=== PATIENT | male | born 2000 | race Caucasian/White ===

== ENCOUNTER 2021-01-15 07:39 | Emergency (ER) | payer OTHER ==
[~2021-01-15] VITALS: Ht 170.2 cm; Wt 63.0 kg
[2021-01-15] MEDS ORDERED: QC A650T3 PO (07:46)
[2021-01-15] MEDS ORDERED: CALC500C16 PO (07:46)
[2021-01-15] MEDS ORDERED: AMOX500T PO (07:46)
[2021-01-15] MEDS ORDERED: IBUPROFEN 600MG TAB PO ONE (08:00)
[2021-01-15 08:25] LABS: BASO # 0.1 10^3/uL (0.0-0.2); BASO % 0.7 % (0.0-1.0); EOS # 0.5 10^3/uL (0.0-0.5); EOS % 5.8 % (0.0-3.0); HEMATOCRIT 48.7 % (42.0-52.0); LYMPH # 3.1 10^3/uL (1.5-5.0); LYMPH % 35.3 % (24.0-44.0); MEAN CORPUSCULAR HEMOGLOBIN 29.4 pg (27.0-33.0); MEAN CORPUSCULAR HGB CONC 32.9 g/dl (32.0-36.5); MEAN CORPUSCULAR VOLUME 89.4 fl (80.0-96.0); MONO # 0.9 10^3/uL (0.0-0.8); MONO % 10.6 % (2.0-8.0); NEUTROPHILS # 4.2 10^3/uL (1.5-8.5); NEUTROPHILS % 47.5 % (36.0-66.0); PLATELET COUNT, AUTOMATED 339 10^3/uL (150-450); RED BLOOD COUNT 5.45 10^6/uL (4.30-6.10); WHITE BLOOD COUNT 8.9 10^3/uL (4.0-10.0)
--- NOTE | 2021-01-15 08:49 | REP ---
INDICATION: trauma COMPARISON: None. TECHNIQUE: Frontal view of the pelvis with neutral and frog lateral views of the right hip. FINDINGS: Osseous structures and joint spaces are intact and normal. Hip joints appear symmetric on frontal pelvic radiograph. No acute fracture dislocation. No evidence for healed injury. No significant degenerative or congenital abnormalities are appreciated. Surrounding soft tissues are unremarkable. IMPRESSION: Normal pelvis and right hip series. <Electronically signed by Chidi Ahn > 01/15/21 [id number]
--- NOTE | 2021-01-15 08:49 | REP ---
INDICATION: RLE pain r/o DVT COMPARISON: None. TECHNIQUE: Araya scale and color Doppler evaluation using linear high frequency transducer. FINDINGS: Ultrasound examination of the right lower extremity deep venous structures from the common femoral vein through the calf/ankle to include the peroneal, and tibial veins demonstrates normal compressibility flow and wave patterns in response to respiration and augmentation. There is no evidence for deep venous thrombosis. Contralateral CFV is patent and normal. IMPRESSION: No evidence for deep venous thrombosis. <Electronically signed by Chidi Ahn > 01/15/21 [id number]
[2021-01-15 08:50] LABS: BLOOD UREA NITROGEN 16 MG/DL (7-18); CALCIUM LEVEL 9.8 MG/DL (8.5-10.1); CARBON DIOXIDE LEVEL 28 MEQ/L (21-32); CHLORIDE LEVEL 106 MEQ/L (98-107); CREATININE FOR GFR 1.16 MG/DL (0.70-1.30); GLUCOSE, FASTING 86 MG/DL (70-100); POTASSIUM SERUM 4.2 MEQ/L (3.5-5.1); SODIUM LEVEL 140 MEQ/L (136-145)
[2021-01-15 08:53] LABS: ERYTHROCYTE SEDIMENTATION RATE 2 mm/hr (0-15)
[2021-01-15 09:28] VITALS: BP 110/57
== END 2021-01-15 09:29 | disposition home or self-care (01) ==
LOC: M ED 07:39
DX: M25.551 Pain in right hip (principal)

== ENCOUNTER 2021-02-03 12:27 | Inpatient (IN) | payer OTHER ==
[~2021-02-03] VITALS: Ht 167.6 cm; Wt 63.6 kg
[~2021-02-03 12:27] MED LIST: AMOX500T PO; CALC500C16 PO; QC A650T3 PO
[2021-02-03 12:58] LABS: HEMATOCRIT 45.4 % (42.0-52.0); HEMOGLOBIN 15.3 g/dl (13.5-17.5); MEAN CORPUSCULAR HEMOGLOBIN 30.1 pg (27.0-33.0); MEAN CORPUSCULAR HGB CONC 33.7 g/dl (32.0-36.5); MEAN CORPUSCULAR VOLUME 89.2 fl (80.0-96.0); PLATELET COUNT, AUTOMATED 294 10^3/uL (150-450); RED BLOOD COUNT 5.09 10^6/uL (4.30-6.10); WHITE BLOOD COUNT 8.3 10^3/uL (4.0-10.0)
[2021-02-03 13:45] LABS: ACETAMINOPHEN LEVEL < 2.0 UG/ML (10.0-30.0); ALBUMIN 4.2 GM/DL (3.2-5.2); ALT/SGPT 28 U/L (12-78); BILIRUBIN,DIRECT 0.3 MG/DL (0.0-0.2); BILIRUBIN,TOTAL 1.4 MG/DL (0.2-1.0); BLOOD UREA NITROGEN 15 MG/DL (7-18); CALCIUM LEVEL 8.9 MG/DL (8.5-10.1); CARBON DIOXIDE LEVEL 24 MEQ/L (21-32); CHLORIDE LEVEL 105 MEQ/L (98-107); CREATININE FOR GFR 0.95 MG/DL (0.70-1.30); ETHYL ALCOHOL (ETHANOL) < 0.003 % (0.000-0.010); GLUCOSE, FASTING 93 MG/DL (70-100); POTASSIUM SERUM 4.3 MEQ/L (3.5-5.1); SALICYLATE LEVEL < 1.7 MG/DL (5.0-30.0); SODIUM LEVEL 137 MEQ/L (136-145); TOTAL PROTEIN 7.6 GM/DL (6.4-8.2)
[2021-02-03 15:56] LABS: AMPHETAMINES LEVEL URINE NEGATIVE (NEGATIVE); BARBITURATES URINE NEGATIVE (NEGATIVE); BENZODIAZEPINES URINE NEGATIVE (NEGATIVE); CANNABINOIDS URINE NEGATIVE (NEGATIVE); COCAINE METABOLITE URINE NEGATIVE (NEGATIVE); METHADONE URINE NEGATIVE (NEGATIVE); OPIATES URINE NEGATIVE (NEGATIVE); PHENCYCLIDINE URINE NEGATIVE (NEGATIVE)
[2021-02-03 17:53] LABS: RSV AMPLIFICATION NEGATIVE (NEGATIVE)
[2021-02-03] MEDS ORDERED: HOME MED LIST COMPLETE! XX SCH (18:50)
--- NOTE | 2021-02-03 19:58 | ECGEPIP ---
[facility] - ED Test Date: 2021-02-03 Pat Name: JAXON RANDALL Department: Room: - Gender: Male Scrap Sorter: KG : 2000 Requested By: Felipe Hennessy Order Number: [id number] Reading MD: Kenia Reynoso Measurements Intervals [place] Rate: 58 P: 56 [place]: 134 QRS: 67 QRSD: 88 T: 48 QT: 402 QTc: 394 Interpretive Statements Sinus bradycardia No prior Electronically Signed on 02-03-2021 19:58:31 EDT by Kenia Reynoso
[2021-02-03] MEDS ORDERED: MOM 30ML SUSPENSION UDC PO PRN (21:40)
[2021-02-03] MEDS ORDERED: OLANZapine ORAL DISINTEGRATING TAB 5MG PO PRN (21:40)
[2021-02-03] MEDS ORDERED: IBUPROFEN 400MG TAB PO PRN (21:40)
[2021-02-03] MEDS ORDERED: MAALOX 30 ML SUSP *UDC PO PRN (21:40)
[2021-02-03 22:12] VITALS: BP 111/65
[2021-02-03] MEDS: traZODone 50 MG TAB PO PRN (22:58)
[2021-02-03] MEDS: ACETAMINOPHEN TAB 650MG DOSE (2X325MG) PO PRN (22:58)
[2021-02-04 06:14] VITALS: BP 122/70
[2021-02-04] MEDS: ACETAMINOPHEN TAB 650MG DOSE (2X325MG) PO PRN ×3 (08:43→21:57)
--- NOTE | 2021-02-04 10:59 | MHHPEPDOC ---
General Date Of Admission: Feb 03, 2021 Legal Status: 9.39 Chief Complaint I was not trying to kill myself I just took those pills because I couldn't sleep. ". History of Present Illness HISTORY OF THE PRESENT ILLNESS: Patient is a 20 -year-old , male, who [has no previous psychiatric history brought to emergency room from [facility] after he told them that he took about six or seven different uwvn-xja-uivjhla pain medicine last night. Patient stated that he has been under a lot of stress from multiple problems in his life. He has relationship issues with his son's mother and also his girlfriend is having issues with her own son in addition to that he has been upset about his brother who has some legal issues. He was recently assigned to the unit at [facility] and he is having difficult time with new members who is giving him hard time and has been missing his work and under disciplinary action. Patient stated that he went to [facility] to have a someone to talk to and has an appointment but in the meantime he was having trouble sleeping and took several different hnpd-ggp-vkmyrko Tylenol and Motrin Wednesday night and then went to the mental health unit to report this and was recommended to come to emergency room. Patient strongly denies any intent to kill himself and stated that he just wanted to get some sleep and rest and ended up taking more than he plan to. Patient denies any ongoing depression denies any history of treatment for depression denies any history of psychosis or karen and does not believe that he needs any antidepressant treatment. He did experiment with the different routes and alcohol before joining the service but denies any current substance abuse issues. Patient is willing to continue outpatient counseling but denies any active lethality and wants to be discharged [facility]. Psychiatric Review of Systems Depression (2 or more weeks): insomnia/hypersomnia, other (Denies any serious depressive symptoms) Karen (4 or more days of): denies Psychosis: denies PTSD: denies Anxiety: situational anxiety, stressor related anxiety, other (Under stress from multiple life issues involving his girlfriend's son's mother and his) Past Psychiatric History Previous Psychiatric Diagnosis: [None]. Previous Psychiatric Admissions: [None]. Suicide Attempts: [No history of suicidal attempt]. Psychiatric Follow-up: Has an appointment with behavioral health unit . Psychiatric medications: [None]. Past Medical History Medical Problems Has stress fracture on his hip Head Injury: No Seizures: No Hospitalizations: No Surgeries: No Family Medical/Psychiatric HX Medical Problems Noncontributory Psychiatric Disorders: No (No family psychiatric history) Addiction: No Suicide Attemps/Completions: No Addiction History denies Social History childhood: [Born in [place] uneventful childhood as parents and the brother]. Abuse/Trauma: Denies any. Current Living Situation: [place] Education: High school. 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 Social Support: [Has a girlfriend]. Legal: [No legal history]. Marital: [Never but has a 3-month-old son with the old girlfriend and having some issues with a support money]. Mental Status Examination General Appearance: appears stated age Build: average Demeanor: average Eye Contact: average Activity: average Behavior: cooperative Speech: clear, normal volume Mood: anxious Mood Moderately anxious with the situational problems but denies any serious de pressed mood. He also reports no clinical signs or symptoms of major depression Affect: full, appropriate, congruent Thought Process: logical/linear Thought Content (Delusions): none reported, denies SI, HI, AVH Thought Content (Other): none reported Thought Content (Aggressive): none reported Perception (Hallucinations): none reported Perception (Other): none reported Cognition (Impairment of): none reported Cognition(Intelligence Est.): average Oriented: Awake, Alert, Oriented times three Insight: fair Judgment: Fair Psychosis: Denies Diagnoses Adjustment disorder with mixed emotion A-FIB/CHADSVASC A-FIB History Current/History of A-Fib/PAF?: No Current PO Anticoag Therapy: No Age/Risk Factor Scoring CHADSVASC: CHADSVASC Response (Comments) Value Age Risk Factor Age < 65 years old 0 Gender Risk Factor Male 0 Hx of CHF No 0 Hx of HTN No 0 Hx of Stroke/TIA/or VTE No 0 Hx of Diabetes No 0 Hx of Vascular Disease No 0 Total 0 Treatment Treatment ordered: NONE Assessment Patient does not appear to be acutely suicidal and denies any serious depressive symptoms. He can be discharged back to his unit with counseling service at [facility]. Initial Treatment Plan 1. Patient was admitted on a 39 status. 2. Complete history was obtained. 3. With patients permission, family will be contacted and database will be expanded. 4. Patients medication regimen will be reviewed and changed accordingly. 5. Patient will be provided with protected environment. 6. Patient will be treated with individual, group, and milieu therapies. 7. Patient will receive supportive psych-education. 8. Discharge planning will commence immediately. 9. Outpatient follow-up treatment will be strongly recommended. 10. The initial treatment plan will focus initially on: * Depression. * Risk for suicide. ESTIMATED LENGTH OF STAY: 2-3 DAYS. TIME SPENT COUNSELING AND COORDINATING INITIAL CARE: 40 minutes. Tobacco Cessation Screen If Patient is a Smoker Non-smoker N/A-No Antipsychotics Vital Signs Vital Signs Date Time Temp Pulse Resp B/P (MAP) Pulse Ox O2 Delivery O2 Flow Rate FiO2 02/04/21 06:14 97.8 52 16 122/70 (87) 98 Room Air Laboratory Data 24H Labs Laboratory Tests 2 02/03/21 12:37: Nucleated Red Blood Cells % (auto) 0.0, Anion Gap 8, Calcium Level 8.9, Total Bilirubin 1.4H, Direct Bilirubin 0.3H, Aspartate Amino Transf (AST/SGOT) 24, Alanine Aminotransferase (ALT/SGPT) 28, Alkaline Phosphatase 102, Total Protein 7.6, Albumin 4.2, Albumin/Globulin Ratio 1.2, Thyroid Stimulating Hormone (TSH) 3.070, Salicylates Level < 1.7L, Acetaminophen Level < 2.0L, Ethyl Alcohol Level < 0.003 02/03/21 15:04: Urine Opiates Screen NEGATIVE, Urine Methadone Screen NEGATIVE, Urine Barbiturates Screen NEGATIVE, Urine Phencyclidine Screen NEGATIVE, Urine Amphetamines Screen NEGATIVE, Urine Benzodiazepines Screen NEGATIVE, Urine Cocaine Metabolite Screen NEGATIVE, Urine Cannabinoids Screen NEGATIVE 02/03/21 16:29: Coronavirus (COVID-19)(PCR) NEGATIVE, Influenza Type A (RT-PCR) NEGATIVE, Influenza Type B (RT-PCR) NEGATIVE, Respiratory Syncytial Virus (PCR) NEGATIVE CBC/BMP Laboratory Tests 02/03/21 12:37 Medications Scheduled PRN Acetaminophen (Acetaminophen 8 Hour) 650 Mg Tablet.er, 650 MG PO Q8H PRN for PAIN LEVEL 1-6, (Reported) Allergies Coded Allergies: No Known Drug Allergies (Verified Allergy, Unknown, 01/15/21) ARIANA CAMPOS M.D. Feb 04, 2021 10:59
--- NOTE | 2021-02-04 12:19 | HPEPDOC ---
[facility] Medical History & Physical Date of Admission Feb 03, 2021 Date of Service: Feb 04, 2021 Other Provider Vita Dominguez MD, attending psychiatrist Attending Physician: JAIDA PARADA DO History and Physical CHIEF COMPLAINT: Overdose on pain medication HISTORY OF PRESENT ILLNESS: Patient is a 20-year-old male who presented to the emergency department after he states he took extra Tylenol and Advil. Patient states he was not trying to harm himself and is unsure why he took this m edication. Patient was admitted into the inpatient mental health unit for further monitoring for unspecified depressive disorder with possible overdose for suicidal ideation. Patient states he is otherwise feeling fine. Patient denies suicidal or homicidal ideations. Patient states that he has stress fractures in his hips which she has not seen orthopedic for as he keeps pushing these dates back. Patient is otherwise feeling well. PAST MEDICAL HISTORY: Denies any medical history PAST SURGICAL HISTORY: Denies any surgical history SOCIAL HISTORY: Patient currently lives in the [facility] as he is active duty [employer]. 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 Patient denies any smoking of cigarettes, illicit drug use. Patient says he has occasionally had alcohol FAMILY HISTORY: Denies any family history ALLERGIES: Please see below. REVIEW OF SYSTEMS: General: Patient denies fevers HEENT: Patient denies headaches Cardiovascular: Patient denies chest pain Respiratory: Patient denies shortness of breath, cough GI: Patient denies abdominal pain, nausea, vomiting, diarrhea : Patient denies increased frequency or pain with urination Extremities: Patient denies swelling or pain in extremities Neurological: Patient denies numbness or tingling in legs Skin: Patient denies any new rashes or lesions. Hematologic: Patient denies any easy bruising. Lymphatic: Patient denies any lumps lumps or bumps in neck, axilla, or groin HOME MEDICATIONS: Please see below. PHYSICAL EXAMINATION: VITAL SIGNS: Temperature 97.8, pulse 52, respiratory rate 16, blood pressure 122/70, pulse oximetry 98% on room air. General: Alert and oriented male patient who was sitting in the chair on I walked in. Patient was able to walk to the examination room under his own juliano r. Patient did not appear to be in any acute distress. HEENT: Normocephalic, atraumatic, moist mucous membranes. Neck: No lymphadenopathy or thyromegaly Cardiac: Regular rate and rhythm, no murmurs, normal S1, normal S2 Pulm: Clear to auscultation bilaterally. No wheezes, rhonchi, rales Abd: Nondistended, nontender to palpation, normal bowel sounds Ext: No edema bilateral lower extremities Neuro: Patient was able to move all 4 extremities equally. Skin: Skin of the head, neck, upper and lower extremities was examined and did not show any evidence of rash or lesion. LABORATORY DATA: See below. IMAGING: No imaging has been performed during this hospitalization MICROBIOLOGY: Please see below. ASSESSMENT: 20-year-old male who states he took extra Tylenol and ibuprofen and was not trying to hurt himself who is hospitalized in the inpatient mental health unit for depressive disorder. . PLAN: 1. Unspecified depressive disorder. Management per psychiatric team. Patient may be being discharged tomorrow. 2. Bilateral stress fractures in his hips. Encourage patient to follow-up with orthopedic surgery. Patient will continue to follow with outpatient physiotherapy. Patient can have Tylenol as needed. Disposition: Patient will continue the treatment plan per psychiatry. Please recent consult hospitalist if the need arises. Vital Signs Vital Signs Date Time Temp Pulse Resp B/P (MAP) Pulse Ox O2 Delivery O2 Flow Rate FiO2 02/04/21 06:14 97.8 52 16 122/70 (87) 98 Room Air Laboratory Data Labs 24H Laboratory Tests 2 02/03/21 12:37: Nucleated Red Blood Cells % (auto) 0.0, Anion Gap 8, Calcium Level 8.9, Total Bilirubin 1.4H, Direct Bilirubin 0.3H, Aspartate Amino Transf (AST/SGOT) 24, Alanine Aminotransferase (ALT/SGPT) 28, Alkaline Phosphatase 102, Total Protein 7.6, Albumin 4.2, Albumin/Globulin Ratio 1.2, Thyroid Stimulating Hormone (TSH) 3.070, Salicylates Level < 1.7L, Acetaminophen Level < 2.0L, Ethyl Alcohol Level < 0.003 02/03/21 15:04: Urine Opiates Screen NEGATIVE, Urine Methadone Screen NEGATIVE, Urine Barbiturates Screen NEGATIVE, Urine Phencyclidine Screen NEGATIVE, Urine Amphetamines Screen NEGATIVE, Urine Benzodiazepines Screen NEGATIVE, Urine Cocaine Metabolite Screen NEGATIVE, Urine Cannabinoids Screen NEGATIVE 02/03/21 16:29: Coronavirus (COVID-19)(PCR) NEGATIVE, Influenza Type A (RT-PCR) NEGATIVE, Influenza Type B (RT-PCR) NEGATIVE, Respiratory Syncytial Virus (PCR) NEGATIVE CBC/BMP Laboratory Tests 02/03/21 12:37 Home Medications Scheduled PRN Acetaminophen (Acetaminophen 8 Hour) 650 Mg Tablet.er, 650 MG PO Q8H PRN for PAIN LEVEL 1-6 Allergies Coded Allergies: No Known Drug Allergies (Verified Allergy, Unknown, 01/15/21) A-FIB/CHADSVASC A-FIB History Current/History of A-Fib/PAF?: No Age/Risk Factor Scoring CHADSVASC: CHADSVASC Response (Comments) Value Age Risk Factor Age < 65 years old 0 Gender Risk Factor Male 0 Hx of CHF No 0 Hx of HTN No 0 Hx of Stroke/TIA/or VTE No 0 Hx of Diabetes No 0 Hx of Vascular Disease No 0 Total 0 JAIDA PARADA DO Feb 04, 2021 12:19
[2021-02-04 16:34] VITALS: BP 119/56
[2021-02-04] MEDS: traZODone 50 MG TAB PO PRN (21:57)
[2021-02-05 05:59] VITALS: BP 125/56
[2021-02-05] MEDS: ACETAMINOPHEN TAB 650MG DOSE (2X325MG) PO PRN (08:27)
--- NOTE | 2021-02-05 09:50 | MHDSPDOC ---
[facility] Discharge Summary Discharge Summary DATE OF ADMISSION: Feb 03, 2021 at 21:55 DATE OF DISCHARGE: February 05, 2021 DISCHARGE DIAGNOSES: 1.. Adjustment disorder with mixed emotion 2.. REASON FOR ADMISSION: 20-year-old single male with no previous psychiatric history sent to emergency room from behavioral health unit after he told them that he took about 6 or 7 qmbf-bln-ungzofj pain medicine for sleep. Patient admits to having several life stressors but denies any suicidal intent and does not feel he needs any antidepressant treatment. He did seek counseling service and has an appointment with the behavioral health unit. CONSULTANTS INVOLVED: TREATMENT AND PROGRESS ON THE UNIT : Patient continues to deny any suicidal plan or intent and denies any clinical signs or symptoms of major depression. He is conflicted with his life problems but denies any serious ongoing depressive symptoms.. HOSPITAL COURSE: He was seen for supportive therapy and lethality evaluation. Patient was able to discuss his life stressors and admits that he is in some type of disciplinary proceeding and understands that he may get discharged from the service but denies any suicidal thoughts plan or intent. He is maintaining good control and does not want any antidepressant treatment but is willing to continue counseling service. DISCHARGE ASSESSMENT: Stable and not suicidal MENTAL STATUS EXAMINATION ON DISCHARGE: Patient is a 20-year old male, who is in no acute distress. Speech is coherent. Language skills are good. Thought processes including: Organized. Thought content: No psychotic symptoms and no suicidal thoughts. Abstract reasoning, and computation: Fair. Description of associations: Coherent. Description of abnormal or psychotic thoughts: No psychotic symptoms. Judgment: Fair. Insight: Fair. Orientation to oriented. Recent and remote memory: No impairment. Attention span and concentration: Fair. Language:. Fund of knowledge: Average. Mood: Moderately anxious. Affect: Appropriate. MEDICATIONS ON DISCHARGE: -For. No psychotropic medication -For. -For. PLAN/FOLLOWUP ARRANGEMENTS: To follow-up with the behavioral health unit. The amount of time spent in the coordination of care for this patient was approximately 30 minutes. ETOH/Disorder Med Rx ETOH/DRUG DISORDER RX: N/A Vital Signs/I&Os Vital Signs Date Time Temp Pulse Resp B/P (MAP) Pulse Ox O2 Delivery O2 Flow Rate FiO2 02/05/21 05:59 97.8 64 14 125/56 (79) 98 Room Air Medications Scheduled PRN Acetaminophen (Acetaminophen 8 Hour) 650 Mg Tablet.er, 650 MG PO Q8H PRN for PAIN LEVEL 1-6, (Reported) Allergies Coded Allergies: No Known Drug Allergies (Verified Allergy, Unknown, 01/15/21) ARIANA CAMPOS M.D. Feb 05, 2021 09:50
== END 2021-02-05 10:23 | disposition home or self-care (01) | DRG 882 ==
LOC: M ED 12:27 → M PSY 21:55
PROVIDERS: ADMIT Psychiatry & Neurology Psychiatry; ATTEND Psychiatry & Neurology Psychiatry
DX: F43.25 Adjustment disorder with mixed disturbance of emotions and conduct (principal); Z63.0 Problems in relationship with spouse or partner; M84.359D Stress fracture, hip, unspecified, subsequent encounter for fracture with routine healing; Z20.822 Contact with and (suspected) exposure to COVID-19

== ENCOUNTER 2021-06-23 12:51 | Emergency (ER) | payer OTHER ==
[~2021-06-23] VITALS: Ht 170.2 cm; Wt 63.6 kg
[2021-06-23] MEDS ORDERED: BUSP10TA PO (13:27)
[2021-06-23] MEDS ORDERED: TRAZ-252 PO (13:27)
[2021-06-23] MEDS ORDERED: KETOROLAC 30 MG/ML 1ML VIAL IV ONE (13:50)
[2021-06-23] MEDS ORDERED: GI COCKTAIL 50ML BTL(HYOSCYAMINE/MAALOX/LIDOCAINE VISCOUS)(1:3:1) PO ONE (13:50)
[2021-06-23] MEDS ORDERED: LORazepam 2 MG TAB PO ONE (13:50)
[2021-06-23 14:14] LABS: BASO # 0.1 10^3/uL (0.0-0.2); BASO % 0.4 % (0.0-1.0); EOS # 0.1 10^3/uL (0.0-0.5); EOS % 1.1 % (0.0-3.0); HEMATOCRIT 45.1 % (42.0-52.0); HEMOGLOBIN 14.9 g/dl (13.5-17.5); LYMPH # 1.9 10^3/uL (1.5-5.0); LYMPH % 15.7 % (24.0-44.0); MEAN CORPUSCULAR HEMOGLOBIN 30.5 pg (27.0-33.0); MEAN CORPUSCULAR VOLUME 92.4 fl (80.0-96.0); MONO # 1.5 10^3/uL (0.0-0.8); MONO % 12.7 % (2.0-8.0); NEUTROPHILS # 8.4 10^3/uL (1.5-8.5); NEUTROPHILS % 69.8 % (36.0-66.0); PLATELET COUNT, AUTOMATED 287 10^3/uL (150-450); RED BLOOD COUNT 4.88 10^6/uL (4.30-6.10); WHITE BLOOD COUNT 12.1 10^3/uL (4.0-10.0)
--- NOTE | 2021-06-23 14:48 | REP ---
INDICATION: CHEST PAIN COMPARISON: None. TECHNIQUE: Portable AP view of the chest FINDINGS: The mediastinum and cardiac silhouette are within normal limits for portable technique. The lung villarreal are clear without acute consolidation, effusion, or pneumothorax. Skeletal structures are intact. IMPRESSION: No acute cardiopulmonary process appreciated. <Electronically signed by Chidi Ahn > 06/23/21 0101
[2021-06-23 14:56] LABS: AMPHETAMINES LEVEL URINE NEGATIVE (NEGATIVE); BARBITURATES URINE NEGATIVE (NEGATIVE); BENZODIAZEPINES URINE NEGATIVE (NEGATIVE); CANNABINOIDS URINE POSITIVE (NEGATIVE); COCAINE METABOLITE URINE NEGATIVE (NEGATIVE); METHADONE URINE NEGATIVE (NEGATIVE); OPIATES URINE NEGATIVE (NEGATIVE); PHENCYCLIDINE URINE NEGATIVE (NEGATIVE)
[2021-06-23 14:57] LABS: RSV AMPLIFICATION NEGATIVE (NEGATIVE)
[2021-06-23 15:02] LABS: ACETAMINOPHEN LEVEL < 2.0 UG/ML (10.0-30.0); ALBUMIN 4.5 GM/DL (3.2-5.2); ALT/SGPT 19 U/L (12-78); BILIRUBIN,DIRECT 0.3 MG/DL (0.0-0.2); BILIRUBIN,TOTAL 1.3 MG/DL (0.2-1.0); BLOOD UREA NITROGEN 12 MG/DL (7-18); CALCIUM LEVEL 9.5 MG/DL (8.5-10.1); CARBON DIOXIDE LEVEL 23 MEQ/L (21-32); CHLORIDE LEVEL 107 MEQ/L (98-107); CREATININE FOR GFR 1.14 MG/DL (0.70-1.30); ETHYL ALCOHOL (ETHANOL) 0.004 % (0.000-0.010); GLUCOSE, FASTING 96 MG/DL (70-100); POTASSIUM SERUM 3.7 MEQ/L (3.5-5.1); SALICYLATE LEVEL < 1.7 MG/DL (5.0-30.0); SODIUM LEVEL 140 MEQ/L (136-145); TOTAL PROTEIN 7.7 GM/DL (6.4-8.2)
[2021-06-23] MEDS ORDERED: SUCR1TA PO (16:34)
[2021-06-23] MEDS ORDERED: OMEP40CA4 PO (16:34)
[2021-06-23 17:17] VITALS: BP 129/58
--- NOTE | 2021-06-23 19:15 | ECGEPIP ---
[facility] - ED Test Date: 2021-06-23 Pat Name: JAXON RANDALL Department: Room: - Gender: Male Manufacturing Automation Engineer: panchodanielradha : 2000 Requested By: SANDIE Ba Order Number: [id number] Reading MD: Kenia Reynoso Measurements Intervals [place] Rate: 93 P: 57 [place]: 134 QRS: 52 QRSD: 80 T: 54 QT: 328 QTc: 407 Interpretive Statements Normal sinus rhythm increased rate 02/03/21 Electronically Signed on 06-23-2021 19:15:27 EST by Kenia Reynoso
== END 2021-06-23 17:27 | disposition home or self-care (01) ==
LOC: EDBD 12:51 → M ED 12:51
DX: R07.89 Other chest pain (principal); F41.0 Panic disorder [episodic paroxysmal anxiety]
CPT/HCPCS: 71045; 80048; 80076; 80143; 80307; 82077; 84443; 84484; 85025; 85379; 87631; 93005; 93041; 94760; 96374; 99284; J1885

== ENCOUNTER 2021-09-17 13:05 | Emergency (ER) | payer OTHER ==
[~2021-09-17] VITALS: Ht 170.2 cm; Wt 65.9 kg
[~2021-09-17 13:05] MED LIST changes: +BUSP10TA PO; +OMEP40CA4 PO; +SUCR1TA PO; +TRAZ-252 PO
[2021-09-17] MEDS ORDERED: NS 1,000 ML IV ONE (14:25)
[2021-09-17 14:39] LABS: HEMATOCRIT 43.1 % (42.0-52.0); HEMOGLOBIN 14.9 g/dl (13.5-17.5); MEAN CORPUSCULAR HEMOGLOBIN 30.6 pg (27.0-33.0); MEAN CORPUSCULAR HGB CONC 34.6 g/dl (32.0-36.5); MEAN CORPUSCULAR VOLUME 88.5 fl (80.0-96.0); PLATELET COUNT, AUTOMATED 287 10^3/uL (150-450); RED BLOOD COUNT 4.87 10^6/uL (4.30-6.10); WHITE BLOOD COUNT 12.4 10^3/uL (4.0-10.0)
[2021-09-17 15:45] LABS: ACETAMINOPHEN LEVEL < 2.0 UG/ML (10.0-30.0); ALT/SGPT 26 U/L (12-78); BILIRUBIN,DIRECT 0.2 MG/DL (0.0-0.2); BILIRUBIN,TOTAL 0.8 MG/DL (0.2-1.0); BLOOD UREA NITROGEN 15 MG/DL (7-18); CALCIUM LEVEL 8.9 MG/DL (8.5-10.1); CARBON DIOXIDE LEVEL 26 MEQ/L (21-32); CHLORIDE LEVEL 110 MEQ/L (98-107); CREATININE FOR GFR 1.07 MG/DL (0.70-1.30); ETHYL ALCOHOL (ETHANOL) < 0.003 % (0.000-0.010); GLUCOSE, FASTING 89 MG/DL (70-100); POTASSIUM SERUM 3.7 MEQ/L (3.5-5.1); SALICYLATE LEVEL < 1.7 MG/DL (5.0-30.0); SODIUM LEVEL 141 MEQ/L (136-145); TOTAL PROTEIN 7.1 GM/DL (6.4-8.2)
[2021-09-17] MEDS ORDERED: LORazepam 2 MG/ML VIAL As Ordered ONE (15:49)
[2021-09-17] MEDS ORDERED: LORazepam 2 MG/ML VIAL IV STA (15:52)
[2021-09-17] MEDS ORDERED: busPIRone 10 MG TAB PO ONE (16:30)
[2021-09-17 16:32] VITALS: BP 112/79
== END 2021-09-17 20:07 | disposition home or self-care (01) ==
LOC: EDBD 13:05 → M ED 13:05
DX: R55 Syncope and collapse (principal); F41.0 Panic disorder [episodic paroxysmal anxiety]; F43.20 Adjustment disorder, unspecified; F19.10 Other psychoactive substance abuse, uncomplicated; Z79.899 Other long term (current) drug therapy
CPT/HCPCS: 71046; 80048; 80076; 80143; 82077; 84443; 84484; 85027; 85379; 93005; 93041; 94760; 96374; 99285; J2060

== ENCOUNTER 2021-09-22 12:59 | Emergency (ER) | payer OTHER ==
[~2021-09-22] VITALS: Ht 170.2 cm; Wt 65.9 kg
[2021-09-22] MEDS ORDERED: SERT50TA29 (13:12)
[2021-09-22] MEDS ORDERED: BUSP15TA47 (13:12)
[2021-09-22] MEDS ORDERED: NALT50TA4 (13:12)
[2021-09-22] MEDS ORDERED: hydrOXYzine 50 MG TAB PO ONE (13:50)
[2021-09-22 14:24] LABS: HEMATOCRIT 41.2 % (42.0-52.0); HEMOGLOBIN 14.2 g/dl (13.5-17.5); MEAN CORPUSCULAR HEMOGLOBIN 30.9 pg (27.0-33.0); MEAN CORPUSCULAR HGB CONC 34.5 g/dl (32.0-36.5); MEAN CORPUSCULAR VOLUME 89.6 fl (80.0-96.0); PLATELET COUNT, AUTOMATED 272 10^3/uL (150-450); WHITE BLOOD COUNT 12.2 10^3/uL (4.0-10.0)
[2021-09-22 15:04] LABS: RSV AMPLIFICATION NEGATIVE (NEGATIVE)
[2021-09-22 15:07] LABS: ACETAMINOPHEN LEVEL < 2.0 UG/ML (10.0-30.0); ALBUMIN 4.1 GM/DL (3.2-5.2); ALT/SGPT 20 U/L (12-78); BILIRUBIN,DIRECT 0.2 MG/DL (0.0-0.2); BILIRUBIN,TOTAL 0.8 MG/DL (0.2-1.0); BLOOD UREA NITROGEN 19 MG/DL (7-18); CALCIUM LEVEL 9.1 MG/DL (8.5-10.1); CARBON DIOXIDE LEVEL 26 MEQ/L (21-32); CHLORIDE LEVEL 108 MEQ/L (98-107); ETHYL ALCOHOL (ETHANOL) 0.003 % (0.000-0.010); GLUCOSE, FASTING 96 MG/DL (70-100); POTASSIUM SERUM 3.4 MEQ/L (3.5-5.1); SALICYLATE LEVEL < 1.7 MG/DL (5.0-30.0); SODIUM LEVEL 138 MEQ/L (136-145); TOTAL PROTEIN 7.3 GM/DL (6.4-8.2)
[2021-09-22 17:03] VITALS: BP 135/64
[2021-09-22 17:03] LABS: AMPHETAMINES LEVEL URINE NEGATIVE (NEGATIVE); BARBITURATES URINE NEGATIVE (NEGATIVE); BENZODIAZEPINES URINE NEGATIVE (NEGATIVE); CANNABINOIDS URINE POSITIVE (NEGATIVE); COCAINE METABOLITE URINE NEGATIVE (NEGATIVE); METHADONE URINE NEGATIVE (NEGATIVE); OPIATES URINE NEGATIVE (NEGATIVE); PHENCYCLIDINE URINE NEGATIVE (NEGATIVE)
== END 2021-09-22 17:08 | disposition home or self-care (01) ==
LOC: M ED 12:59
DX: F43.0 Acute stress reaction (principal); F41.8 Other specified anxiety disorders; F17.290 Nicotine dependence, other tobacco product, uncomplicated; Z79.899 Other long term (current) drug therapy

== ENCOUNTER 2021-10-17 05:10 | Emergency (ER) | payer OTHER ==
[~2021-10-17] VITALS: Ht 167.6 cm; Wt 61.4 kg
[~2021-10-17 05:10] MED LIST changes: +BUSP15TA47; +NALT50TA4; +SERT50TA29
[2021-10-17] MEDS ORDERED: NAPR-885 PO (05:21)
[2021-10-17] MEDS ORDERED: METH-1164 PO (05:21)
[2021-10-17 06:30] LABS: HEMATOCRIT 43.4 % (42.0-52.0); HEMOGLOBIN 14.4 g/dl (13.5-17.5); MEAN CORPUSCULAR HEMOGLOBIN 30.8 pg (27.0-33.0); MEAN CORPUSCULAR HGB CONC 33.2 g/dl (32.0-36.5); MEAN CORPUSCULAR VOLUME 92.9 fl (80.0-96.0); PLATELET COUNT, AUTOMATED 352 10^3/uL (150-450); RED BLOOD COUNT 4.67 10^6/uL (4.30-6.10); WHITE BLOOD COUNT 10.5 10^3/uL (4.0-10.0)
[2021-10-17 07:11] LABS: ACETAMINOPHEN LEVEL < 2.0 UG/ML (10.0-30.0); ALBUMIN 4.3 GM/DL (3.2-5.2); ALT/SGPT 24 U/L (12-78); BILIRUBIN,DIRECT 0.2 MG/DL (0.0-0.2); BLOOD UREA NITROGEN 12 MG/DL (7-18); CALCIUM LEVEL 9.4 MG/DL (8.5-10.1); CARBON DIOXIDE LEVEL 25 MEQ/L (21-32); CHLORIDE LEVEL 106 MEQ/L (98-107); ETHYL ALCOHOL (ETHANOL) 0.003 % (0.000-0.010); GLUCOSE, FASTING 94 MG/DL (70-100); SALICYLATE LEVEL < 1.7 MG/DL (5.0-30.0); SODIUM LEVEL 138 MEQ/L (136-145); THYROID STIMULATING HORMONE 0.808 uIU/ML (0.463-3.98)
[2021-10-17] MEDS ORDERED: MULTIVITAMIN -ADULT INJECTION 10 ML, THIAMINE INJection 100 MG, FOLIC ACID 1 MG in NS 1... IV ONE (07:15)
[2021-10-17] MEDS ORDERED: LIDOCAINE 2% 5ML JELLY UROJET TOP ONE (09:20)
[2021-10-17 10:10] LABS: AMPHETAMINES LEVEL URINE NEGATIVE (NEGATIVE); BARBITURATES URINE NEGATIVE (NEGATIVE); BENZODIAZEPINES URINE NEGATIVE (NEGATIVE); CANNABINOIDS URINE NEGATIVE (NEGATIVE); COCAINE METABOLITE URINE NEGATIVE (NEGATIVE); METHADONE URINE NEGATIVE (NEGATIVE); OPIATES URINE NEGATIVE (NEGATIVE); PHENCYCLIDINE URINE NEGATIVE (NEGATIVE)
[2021-10-17 12:14] VITALS: BP 111/51
== END 2021-10-17 12:16 | disposition home or self-care (01) ==
LOC: M ED 05:10
DX: F19.10 Other psychoactive substance abuse, uncomplicated (principal); F10.10 Alcohol abuse, uncomplicated; F32.9 Major depressive disorder, single episode, unspecified; F17.200 Nicotine dependence, unspecified, uncomplicated; Z79.899 Other long term (current) drug therapy
CPT/HCPCS: 51701; 70450; 80048; 80076; 80143; 80307; 82077; 84443; 85027; 96365; 96366; 99284; J3411

== ENCOUNTER 2021-10-23 22:52 | Emergency (ER) | payer OTHER ==
[~2021-10-23] VITALS: Ht 168.9 cm; Wt 64.7 kg
[~2021-10-23 22:52] MED LIST changes: +METH-1164 PO; +NAPR-885 PO
[2021-10-23 22:53] VITALS: BP 134/84
== END 2021-10-24 01:24 | disposition left against medical advice (07) ==
LOC: M ED 23:22
DX: Z53.21 Procedure and treatment not carried out due to patient leaving prior to being seen by health care provider (principal)